=== PATIENT | male | born 1985 | race African-American/Black ===

== ENCOUNTER 2019-03-10 13:02 | Emergency (ER) | payer SELFPAY ==
[~2019-03-10] VITALS: Ht 190.5 cm; Wt 102.1 kg
[2019-03-10 13:37] VITALS: Ht 190.5 cm; Wt 102.1 kg
[2019-03-10 18:20] LABS: BASOPHIL % 0.7 % (0-2); PLATELET COUNT 240 x10^3mcL (130-400); RED CELL DISTRIBUTION WIDTH 13.6 % (11.5-14.5)
[2019-03-10 18:25] LABS: CALCIUM 9.3 mg/dL (8.5-10.1); CARBON DIOXIDE 31.5 mmol/L (21-32); CHLORIDE SERUM 104 mmol/L (98-107); CREATININE SERUM 0.9 mg/dL (0.7-1.3); GFR1 > 60 mL/min; GLUCOSE SERUM 80 mg/dL (74-106); SODIUM SERUM 143 mmol/L (136-145)
[2019-03-10 19:00] LABS: ERYTHROCYTE SED RATE 10 mm/hr (0-15)
[2019-03-10 19:15] VITALS: BP 138/88
== END 2019-03-10 19:15 | disposition home or self-care (01) ==
LOC: ED 13:02
PROVIDERS: Emergency Medicine
DX: S29.012A Strain of muscle and tendon of back wall of thorax, initial encounter (principal); Z88.0 Allergy status to penicillin; Z91.013 Allergy to seafood; X58.XXXA Exposure to other specified factors, initial encounter; Y93.9 Activity, unspecified; Y92.89 Other specified places as the place of occurrence of the external cause; Y99.8 Other external cause status
CPT/HCPCS: 36415; J1885; Q0092